=== PATIENT | female | born 1955 | race Caucasian/White ===

== ENCOUNTER → 2016-07-11 | Outpatient (CLI) | payer BC ==
[~2016-07-11] MED LIST: ATOR40TA PO; ESTR0.5T PO
--- OUTSIDE RECORDS SUMMARY | 2016-07-11 07:32 | XMS REPORT | Continuity of Care Document ---
Author Author [facility] Organization [facility] Address Unknown Phone Unavailable Allergies Active Description Code Type Severity Reaction Onset Reported/Identified Relationship to Patient Clinical Status Yes amoxicillin [id number] Drug Allergy Unknown N/A 02/01/2013 Yes codeine [id number] Drug Allergy Unknown N/A 02/01/2013 Yes lansoprazole [id number] Drug Allergy Unknown N/A 02/01/2013 Yes pantoprazole sodium [id number] Drug Allergy Unknown N/A 02/01/2013 Yes rabeprazole sodium [id number] Drug Allergy Unknown N/A 02/01/2013 Yes Sulfa (Sulfonamide Antibiotics) [id number] Drug Allergy Unknown N/A 02/01/2013 Medications Problems Date Dx Coded Attending Type Code Diagnosis Diagnosed By 02/01/2013 ALEXIS PARIS, GUILLE Maier Ot 562.10 02/01/2013 GUILLE ESPINOZA MD Ot V76.51 12/04/2014 ZACH PARIS, GLENN Patel Ot V76.12 12/04/2014 ZACH PARIS, GLENN Patel Ot 610.0 12/04/2014 GLENN SERRANO MD Ot 789.03 12/05/2014 MARGARITA FOSTER DO Ot V76.12 01/01/2015 MARGARITA FOSTER DO Ot V76.12 01/05/2016 MARGARITA FOSTER DO Ot Z12.31 ENCNTR SCREEN MAMMOGRAM FOR MALIGNANT NE 01/06/2016 MARGARITA FOSTER DO Ot Z12.31 ENCNTR SCREEN MAMMOGRAM FOR MALIGNANT NE 01/14/2016 MARGARITA FOSTER DO Ot R92.8 OTH ABN AND INCONCLUSIVE FINDINGS ON DX 01/14/2016 MARGARITA FOSTER DO Ot R92.8 OTH ABN AND INCONCLUSIVE FINDINGS ON DX 01/20/2016 MARGARITA FOSTER DO Ot Z12.31 ENCNTR SCREEN MAMMOGRAM FOR MALIGNANT NE 01/26/2016 MARGARITA FOSTER DO Ot R92.8 OTH ABN AND INCONCLUSIVE FINDINGS ON DX 04/04/2016 Ot V76.12 OTH SCREEN MAMMO-MALIGN NEOPLASM OF MARIA TERESA 04/04/2016 Ot 729.5 PAIN IN LIMB 04/04/2016 Ot 782.3 EDEMA 04/04/2016 Ot 793.80 UNSPEC ABNORMAL MAMMOGRAM 04/04/2016 Ot V76.12 OTH SCREEN MAMMO-MALIGN NEOPLASM OF MARIA TREESA 04/04/2016 Ot 610.0 SOLITARY CYST OF BREAST 04/04/2016 GLENN SERRANO MD Ot V76.12 OTH SCREEN MAMMO-MALIGN NEOPLASM OF MARIA TERESA 04/04/2016 ALEXIS PARIS, GUILLE Maier Ot V72.84 EXAM PRE-OPERATIVE NOS Procedures Results Encounters ACCT No. Visit Date/Time Discharge Status Pt. Type Provider Facility Loc./Unit Complaint [id number] 12/04/2014 09:12:00 2014 23:59:59 CLS Outpatient MARGARITA FOSTER DO [facility] RAD [id number] 01/16/2014 13:06:00 2013 23:59:59 CLS Outpatient GLENN SERRANO MD [facility] RAD [id number] 12/16/2013 08:41:00 2013 23:59:59 CLS Outpatient GLENN SERRANO MD [facility] RAD [id number] 12/06/2013 10:15:00 2013 23:59:59 CLS Outpatient GLENN SERRANO MD [facility] RAD [id number] 02/01/2013 07:28:00 2012 10:45:00 DIS Outpatient GUILLE ESPINOZA MD [facility] [id number] 01/31/2013 07:17:00 2012 23:59:59 CLS Outpatient GUILLE ESPINOZA MD [facility] PREOP SCREENING [id number] 11/26/2012 09:20:00 2012 23:59:59 CLS Outpatient GLENN SERRANO MD [facility] RAD SCREENING [id number] 01/13/2016 13:29:00 ACT Outpatient MARGARITA FOSTER DO [facility] RAD ABN MAMMO [id number] 01/05/2016 08:39:00 ACT Outpatient MARGARITA FOSTER DO [facility] RAD SCREENING [id number] 12/13/2011 14:15:00 Document Registration [id number] 11/25/2011 08:08:00 Document Registration [id number] 10/17/2011 10:10:00 Document Registration [id number] 11/26/2010 08:04:00 Document Registration
--- NOTE | 2016-07-11 13:50 | Diagnostic Imaging Report ---
Right breast diagnostic mammogram. CAD is utilized. COMPARISON: 01/13/2016. INDICATION: Followup medial right breast asymmetry. FINDINGS: The previously seen medial right breast asymmetry is slightly less prominent on the CC projection compared to the prior study with appearance suggestive of a 5-mm intramammary lymph node based on the apparent fatty hilum seen. There is an increased prominent asymmetry along the inferior aspect of the right MLO view, however, which is less prominent on the true lateral view and when evaluated with the focal compression view demonstrates spread out of the tissue in favor of summation artifact of parenchyma. IMPRESSION: Persistent medial right breast asymmetry is likely a small intramammary lymph node. Asymmetry along the inferior aspect of the right MLO view is favored to be summation artifact of parenchyma. Ultrasound evaluation pending. ACR BI-RADS Category 0: Incomplete. (Needs additional imaging evaluation). Result letter will be mailed to the patient. Note: At least 10% of breast cancer is not imaged by mammography. Dictated by: Dictated on workstation # [id number]
--- NOTE | 2016-07-11 13:56 | Diagnostic Imaging Report ---
EXAMINATION: Right breast ultrasound. INDICATION: Increased prominence of asymmetry along the inferior aspect of the right breast. Medial right breast asymmetry. FINDINGS: The retroareolar region and four quadrants of the right breast were scanned with no underlying abnormality seen. IMPRESSION: Negative study. The asymmetry in the medial aspect of the right breast is likely a tiny intramammary lymph node. Another followup mammogram when the patient is due for her bilateral exam in December 2016 is recommended. ACR BI-RADS Category 3: Probably benign findings. Dictated by: Dictated on workstation # [id number]
== END ==
LOC: RAD 07:28
PROVIDERS: ATTEND Internal Medicine
DX: R92.8 Other abnormal and inconclusive findings on diagnostic imaging of breast (principal)
CPT/HCPCS: 76641

== ENCOUNTER → 2017-01-10 | Outpatient (CLI) | payer BC ==
--- NOTE | 2017-01-10 10:18 | Diagnostic Imaging Report ---
EXAMINATION: Bilateral diagnostic mammogram with tomography. The current study was also evaluated with a Computer Aided Detection (CAD) system. INDICATION: Followup abnormal mammogram. COMPARISON: 07/11/2016. FINDINGS: The breasts are composed of scattered fibroglandular densities. The previously seen asymmetry along the medial aspect of the right breast is again noted measuring 6 mm and is oval in shape; however, tomographic views demonstrate a circumscribed lesion. The lack of change from the December 2015 exam is suggestive of benign etiology. No mass, architectural distortion, or suspicious cluster of calcifications is seen otherwise in either breast. IMPRESSION: Stable 6 mm oval asymmetry along the medial aspect of the right breast with circumscribed borders, suggestive of a benign etiology. Another followup in 12 months to ensure long-term stability would be recommended. ACR BI-RADS Category 3: Probably benign findings. Result letter will be mailed to the patient. Note: At least 10% of breast cancer is not imaged by mammography. Dictated by: Dictated on workstation # [id number]
== END ==
LOC: RAD 07:23
PROVIDERS: ATTEND Internal Medicine
DX: N64.89 Other specified disorders of breast (principal)
CPT/HCPCS: 77066

== ENCOUNTER → 2017-07-25 | Outpatient (CLI) | payer BC | LOC: RAD 15:00 | PROVIDERS: ATTEND Internal Medicine | DX: Z12.31 Encounter for screening mammogram for malignant neoplasm of breast (principal) | CPT/HCPCS: 77067 ==

== ENCOUNTER → 2018-02-05 | Outpatient (CLI) | payer BC | LOC: RAD 12:16 | PROVIDERS: ATTEND Internal Medicine | DX: N63.10 Unspecified lump in the right breast, unspecified quadrant (principal) ==

== ENCOUNTER → 2018-08-01 | Outpatient (CLI) | payer BC ==
--- NOTE | 2018-08-01 12:12 | Diagnostic Imaging Report ---
EXAMINATION: Digital mammogram bilateral screening with 3D tomosynthesis and CAD. ThIS study was compared to prior exams of 07/25/2017, 01/10/17 and 01/05/2016. At this time there are no current complaints. The current study was also evaluated with a Computer Aided Detection (CAD) system. FINDINGS: There are scattered fibroglandular densities in both breasts which could obscure a lesion. Overall, there does not appear to have been any significant change when compared to the prior exam. No primary or secondary sign of malignancy is noted. IMPRESSION: There is no radiographic evidence for malignancy. ACR BI-RADS Category 1: Negative. Result letter will be mailed to the patient. Note: At least 10% of breast cancer is not imaged by mammography. Dictated by: Dictated on workstation # [id number]
== END ==
LOC: RAD 07:02
PROVIDERS: ATTEND Internal Medicine
DX: Z12.31 Encounter for screening mammogram for malignant neoplasm of breast (principal)
CPT/HCPCS: 77067

== ENCOUNTER → 2019-09-24 | Outpatient (CLI) | payer BC ==
--- NOTE | 2019-09-24 19:48 | Diagnostic Imaging Report ---
EXAM: Digital mammogram bilateral screening. COMPARISONS: 08/01/2018, 07/25/2017 and 01/10/2017. There are no current complaints. The current study was also evaluated with a Computer Aided Detection (CAD) system. FINDINGS: There are scattered fibroglandular densities in both breasts which could obscure a lesion. Overall, there does not appear to have been any significant change when compared to the prior exam. No primary or secondary sign of malignancy is noted. IMPRESSION: There is no radiographic evidence for malignancy. ACR BI-RADS Category 1: Negative. Result letter will be mailed to the patient. Note: At least 10% of breast cancer is not imaged by mammography. Dictated by: Dictated on workstation # [id number]
== END ==
LOC: RAD 07:56
PROVIDERS: ATTEND Internal Medicine
DX: Z12.31 Encounter for screening mammogram for malignant neoplasm of breast (principal)
CPT/HCPCS: 77063; 77067

== ENCOUNTER → 2020-01-14 | Outpatient (CLI) | payer BC ==
--- NOTE | 2020-01-14 13:48 | Diagnostic Imaging Report ---
PROCEDURE: CT abdomen without contrast. TECHNIQUE: Multiple contiguous axial images were obtained through the abdomen without the use of intravenous contrast. Auto Exposure Controls were utilized during the CT exam to meet ALARA standards for radiation dose reduction. INDICATION: Abnormal liver function tests. COMPARISON: Correlation is made with abdominal ultrasound earlier same day and prior CT from 01/16/2014. FINDINGS: The lung bases are clear. Circumscribed low attenuation lesions within the liver are again noted and appear similar to prior CT and most consistent with cysts. The largest is in the left lobe measuring approximately 2.6 cm size. Gallbladder is unremarkable. No biliary ductal dilatation is seen. Pancreas and spleen are unremarkable. No adrenal mass is detected. Kidneys are unremarkable. No calculi or hydronephrosis is detected. The aorta is non-aneurysmal. Visualized bowel loops are normal caliber. There is no obstruction. There is no free fluid. IMPRESSION: 1. Hepatic cysts. 2. No other significant abnormality is detected. Dictated by: Dictated on workstation # [id number]
--- NOTE | 2020-01-14 13:49 | Diagnostic Imaging Report ---
INDICATION: Abnormal liver function tests. PROCEDURE: Ultrasound abdomen complete. TECHNIQUE: Multiple real-time grayscale images were obtained of the abdomen in various projections. FINDINGS: Liver is normal in size at 16.3 cm. There are multiple cystic lesions within the liver, largest on the left approximately 3.6 x 2.8 cm. This was seen on prior CT from 2013. The portal vein is patent and shows normal direction of flow. Gallbladder is without stones or sludge. No wall thickening or biliary ductal dilatation is seen. Pancreas is obscured by bowel gas. Spleen is normal in size at 11 cm. Visualized abdominal aorta is nonaneurysmal. IVC is patent. Kidneys are without calculi or hydronephrosis. There is no ascites. IMPRESSION: 1. Hepatic cysts. 2. No other significant abnormality is detected. Dictated by: Dictated on workstation # [id number]
== END ==
LOC: RAD 12:26
PROVIDERS: ATTEND Internal Medicine
DX: K76.89 Other specified diseases of liver (principal); R94.5 Abnormal results of liver function studies
CPT/HCPCS: 74150; 76700